=== PATIENT | male | born 1945 | race Native Hawaiian/Other Pacific Islander ===

== ENCOUNTER 2016-11-03 14:36 | Emergency (ER) | payer MEDICARE ==
[2016-11-03 14:49] VITALS: RESP 18; TEMP 98.2
--- NOTE | 2016-11-03 15:10 | C.PDOC ---
History Of Present Illness 70 y/o make with dm comes for evaluation of wound to left lower leg. pt banged into a metal bed on 10/28 and has small wound to leg, pt hasn't checked sugar in 3 days, says [id number] usually around 10 or 11.pt compliant with po medications and has been applying mupurocin to wound. denies fever and chills. , Time Seen by Provider: 11/03/16 14:58 Chief Complaint (Nursing): Abnormal Skin Integrity History Per: Patient History/Exam Limitations: no limitations Onset/Duration Of Symptoms: Days (6) Current Symptoms Are (Timing): Still Present Location Of Injury: Left: Leg Quality Of Symptoms: Painful Severity: Moderate Recent travel outside of the [place]: No Past Medical History Vital Signs: Last Vital Signs Temp 98.2 F 11/03/16 16:45 Pulse 92 H 11/03/16 16:45 Resp 18 11/03/16 16:45 BP 135/79 11/03/16 16:45 Pulse Ox 97 11/03/16 16:45 - Medical History PMH: Asthma, Diabetes, HTN, Hyperlipidemia Surgical History: No Surg Hx Family History: States: Unknown Family Hx - Social History Hx Alcohol Use: No Hx Substance Use: No - Immunization History Hx Tetanus Toxoid Vaccination: No Hx Influenza Vaccination: No Hx Pneumococcal Vaccination: No Review Of Systems Constitutional: Negative for: Fever, Chills Cardiovascular: Negative for: Chest Pain Respiratory: Negative for: Cough Skin: Positive for: Lesions (from injury on 10/28) Neurological: Negative for: Weakness, Numbness Physical Exam - Physical Exam Appears: Non-toxic, Toxic Skin: Warm, Dry, Other (quarter sized shallow ulceration to distal anterior lower kitchen, with no surrounding warmth or erythema. some yellowish discharge on bandaid comvering wound. ) Head: Atraumatic, Normacephalic Neck: Normal ROM Chest: Symmetrical, No Tenderness Cardiovascular: Rhythm Regular, No Murmur Respiratory: Normal Breath Sounds, No Rales, No Rhonchi, No Wheezing Extremity: Normal ROM, Tenderness (at site of wound), No Pedal Edema, No Calf Tenderness Pulses: Left Dorsalis Pedis: Normal, Right Dorsalis Pedis: Normal Neurological/Psych: Oriented x3, Normal Speech, Normal Cognition ED Course And Treatment O2 Sat by Pulse Oximetry: 98 Medical Decision Making Medical Decision Making: pt with ulcerated skin to left kitchen with dm; d/c with bactrim and keflex and f/ u pmd and wound care center. Disposition Counseled Patient/Family Regarding: Diagnosis, Need For Followup, Rx Given - Disposition Referrals: Abbey Mauro MD [Medical Doctor] - [facility] [Outside] Disposition: HOME/ ROUTINE Disposition Time: 17:47 Condition: STABLE Additional Instructions: Take antibiotics as prescribed. Follow up with your primary care doctor on Saturday and make nearest appointment with wound care center. Tylenol or Motrin for pain if needed. Take medications for diabetes as prescribed. Return to ER for any worsening symptoms, increasing size of wound, fever or any other concerns. Prescriptions: Cephalexin [cephalexin] 500 mg PO QID #28 cap Sulfamethoxazole/Trimethoprim [Bactrim DS 800 mg-160 mg] 1 tab PO BID #14 tab Instructions: Diabetes and Your Skin (ED) Forms: General Discharge Instructions - Clinical Impression Clinical Impression: Skin ulcer of left calf, limited to breakdown of skin
[2016-11-03] MEDS ORDERED: (Novolin R) Insulin Human Regular 100 units/ml vial SC STA (15:44)
[2016-11-03] MEDS ORDERED: Tmp-Smz 800 mg-160 mg DS Tab PO STA (15:44)
[2016-11-03] MEDS ORDERED: (Novolin R) Insulin Human Regular 100 units/ml vial ONE (15:57)
[2016-11-03] MEDS ORDERED: Tmp-Smz 800 mg-160 mg DS Tab ONE (15:57)
[2016-11-03 18:02] VITALS: BP 153/84; PULSE 95
[2016-11-03 18:14] VITALS: O2SAT 98
== END 2016-11-03 18:07 | disposition home or self-care (01) ==
LOC: C.ER 14:36
DX: E11.622 Type 2 diabetes mellitus with other skin ulcer (principal); L97.221 Non-pressure chronic ulcer of left calf limited to breakdown of skin